=== PATIENT | female | born 1945 | race Caucasian/White ===

== ENCOUNTER 2018-04-29 06:47 | Emergency (ER) | payer MEDICARE ==
[2018-04-29 06:53] VITALS: TEMP 97.6
[2018-04-29] MEDS ORDERED: HYDROmorphone 1 MG/ML 1 ML SYRINGE IM STA (07:18)
[2018-04-29] MEDS ORDERED: ONDANSETRON ODT 4 MG TAB PO STA (07:18)
--- NOTE | 2018-04-29 07:21 | ED ---
General Adult HPI - General Chief complaint: Fall Stated complaint: Fall, shoulder pain Time Seen by Provider: 04/29/18 07:00 Source: patient, family, RN notes reviewed Mode of arrival: wheelchair Limitations: no limitations - History of Present Illness Initial comments: This is a 72-year-old female who presents to the emergency department complaining of left arm pain. Patient states she tripped and fell and arm and is now unable to move it. Patient states she also has some ecchymosis under her armpit since the fall. Patient's not sure if she dislocated her arm or if she broke her shoulder. Patient denies any elbow wrist or hand pain. Patient denies any numbness or weakness but she's unable to move it secondary to pain. Patient denies any head or neck injury. Patient denies any chest pain difficulty breathing shortness of breath. - Related Data Home Medications Medication Instructions Recorded Confirmed Levothyroxine Sodium [Synthroid] 100 mcg PO DAILY 02/19/16 04/29/18 Ascorbic Acid [Vitamin C] 500 mg PO DAILY 04/29/18 04/29/18 Cholecalciferol (Vitamin D3) 2,000 unit PO DAILY 04/29/18 04/29/18 [Vitamin D3] Cyanocobalamin (Vitamin B-12) 1,000 mcg PO DAILY 04/29/18 04/29/18 [Vitamin B-12] Multivitamins, Thera [Multivitamin 1 tab PO DAILY 04/29/18 04/29/18 (formulary)] Ubidecarenone [Co Q-10] 100 mg PO DAILY 04/29/18 04/29/18 Zinc 50 mg PO DAILY 04/29/18 04/29/18 Allergies Allergy/AdvReac Type Severity Reaction Status Date / Time morphine Allergy swelling Verified 04/29/18 08:09 and itching procaine [From Novocain] Allergy swelling Verified 04/29/18 08:09 and itching Review of Systems ROS Statement: Those systems with pertinent positive or pertinent negative responses have been documented in the HPI. ROS Other: All systems not noted in ROS Statement are negative. 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 Patient is nontoxic and well- hydrated and is in no acute distress. ENT: Neck is soft and supple. No significant lymphadenopathy is noted. Oropharynx is clear. Moist mucous membranes. Neck has full range of motion without eliciting any pain. EYES: The sclera were anicteric and conjunctiva were pink and moist. Extraocular movements were intact and pupils were equal round and reactive to light. Eyelids were unremarkable. PULMONARY: Unlabored respirations. Good breath sounds bilaterally. No audible rales rhonchi or wheezing was noted. CARDIOVASCULAR: There is a regular rate and rhythm without any murmurs gallops or rubs. ABDOMEN: Soft and nontender with normal bowel sounds. No palpable organomegaly was noted. There is no palpable pulsatile mass. SKIN: Skin is clear with no lesions or rashes and otherwise unremarkable. NEUROLOGIC: Patient is alert and oriented x3. Cranial nerves II through XII are grossly intact. Motor and sensory are also intact. Normal speech, volume and content. Symmetrical smile. MUSCULOSKELETAL: Tenderness to the proximal left humerus. There is also ecchymosis in the axilla. Patient has good radial pulse on the left hand good cap refill and normal sensation. LYMPHATICS: No significant lymphadenopathy is noted PSYCHIATRIC: Normal psychiatric evaluation. Limitations: no limitations Course Vital Signs 04/29/18 04/29/18 04/29/18 06:50 09:09 09:40 Temperature 97.6 F Pulse Rate 73 79 87 Respiratory 20 18 18 Rate Blood Pressure 182/118 191/112 181/99 O2 Sat by Pulse 98 93 L 95 Oximetry 04/29/18 04/29/18 09:44 09:46 Temperature Pulse Rate 77 70 Respiratory 18 18 Rate Blood Pressure 205/123 192/106 O2 Sat by Pulse 99 100 Oximetry Procedures - Orthopedic Joint Reduction Joint #1 Consent Obtained: written consent Time Out Performed: Yes Side: left Joint Reduction Location: shoulder Analgesia: procedural sedation Shoulder Technique Used (if applicable): traction/counter-traction Post-Reduction Neuro Exam: intact Post-Reduction Vascular Exam: intact Post Reduction X-Ray Results: reduced Splint Applied: No Patient Tolerated Procedure: well - Procedural Sedation Procedural Sedation Start Time: 09:43 Procedural Sedation Stop Time: 10:10 Indications: fracture/dislocation reduction ASA Class: I Preparation: personnel monitor applied, pulse oximeter, capnometry used, supplemental O2 applied IV Etomidate Dose (mgs): 15 Complications: none Patient Tolerated Procedure: well Medical Decision Making - Medical Decision Making X-ray showed a dislocated left shoulder. Postreduction x-ray shows shoulder reduced. Disposition Clinical Impression: Dislocation of left shoulder joint, Fall Disposition: HOME SELF-CARE Condition: Good Instructions: Fall Prevention for Older Adults (ED), Shoulder Dislocation (ED) Is patient prescribed a controlled substance at d/c from ED?: No Referrals: None,Stated [Primary Care Provider] - 1-2 days Time of Disposition: 09:57
--- NOTE | 2018-04-29 08:02 | XR ---
EXAMINATION TYPE: XR humerus LT DATE OF EXAM: 04/29/2018 CLINICAL HISTORY: Left humeral pain after fall TECHNIQUE: Two views of the left humerus are obtained. COMPARISON: None. FINDINGS: There is generalized osseous demineralization. There is no clear evidence of acute fractur e seen in the left humerus. There is an anterior dislocation of the left shoulder with overlying soft tissue swelling. Moderate acromio clavicular arthropathy is seen as marginal osteophytes and capsula r hypertrophy. IMPRESSION: Left shoulder anterior dislocation. No apparent fractures seen. 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 Further assessment for fracture will be made on post reduction images.
[2018-04-29] MEDS ORDERED: ETOMIDATE 2 MG/ML 10 ML VIAL IVP STA (09:11)
--- NOTE | 2018-04-29 10:08 | XR ---
EXAMINATION TYPE: XR shoulder limited LT DATE OF EXAM: 04/29/2018 CLINICAL HISTORY: Left shoulder dislocation and relocation. TECHNIQUE: Three views of the left shoulder are obtained. COMPARISON: None. FINDINGS: There is no acute fracture/dislocation evident in the left shoulder. No gross evidence of bony Bankart fracture. There is redemonstration of moderate acromioclavicular arthropathy. The visua lized ribs are intact and unremarkable. IMPRESSION: Appropriately aligned post reduction of the left glenohumeral joint. No gross evidence of bony Bankart fracture nor Hill-Sachs deformity however if there is persistent pain short-term follow -up left shoulder radiographs could be performed.
[2018-04-29 10:31] VITALS: BP 164/87; PULSE 77; RESP 18
== END 2018-04-29 10:29 | disposition home or self-care (01) ==
LOC: EC 06:47
DX: S43.005A Unspecified dislocation of left shoulder joint, initial encounter (principal); E07.9 Disorder of thyroid, unspecified; Z88.4 Allergy status to anesthetic agent; Z88.5 Allergy status to narcotic agent; Z79.899 Other long term (current) drug therapy; W01.190A Fall on same level from slipping, tripping and stumbling with subsequent striking against furniture, initial encounter; Y92.009 Unspecified place in unspecified non-institutional (private) residence as the place of occurrence of the external cause
CPT/HCPCS: 73020; 73060; 99283; 23650; 99152; 99153; 96372; J1170